=== PATIENT | female | born 1950 | race Caucasian/White ===

== ENCOUNTER 2019-01-22 12:02 | Inpatient (IN) | payer OTHER ==
--- NOTE | 2019-01-22 13:39 | HP ---
CIWA Score - Admission Criteria OASAS Guidelines: Admission for Medically Managed Detox: Requires at least one of the followin. CIWA greater than 12 2. Seizures within the past 24 hours 3. Delirium tremens within the past 24 hours 4. Hallucinations within the past 24 hours 5. Acute intervention needed for co occurring medical disorder 6. Acute intervention needed for co occurring psychiatric disorder 7. Severe withdrawal that cannot be handled at a lower level of care (continued vomiting, continued diarrhea, abnormal vital signs) requiring intravenous medication and/or fluids 8. Admission ROS [facility] Chief Complaint: Pt is here for rehab. Pt was detoxed from alcohol at [facility] for 7 days discharged yesterday. Pt denies of any withdrawals sx at this time. Allergies/Adverse Reactions: Allergies Allergy/AdvReac Type Severity Reaction Status Date / Time No Known Allergies Allergy Verified 01/22/19 12:39 History of Present Illness: pt is a 68yrold female with a history of alcohol dependence seeking rehab after being detox from [facility] yesterday. Pt was d/c yesterday and is feeling comfortable for rehab treatment. Exam Limitations: No Limitations - Ebola screening Have you traveled outside of the country in the last 21 days: No Have you had contact with anyone from an Ebola affected area: No Do you have a fever: No - Review of Systems Constitutional: Changes in sleep EENT: reports: No Symptoms Reported Respiratory: reports: No Symptoms reported Cardiac: reports: No Symptoms Reported GI: reports: Indigestion : reports: No Symptoms Reported Musculoskeletal: reports: No Symptoms Reported Integumentary: reports: Dryness Neuro: reports: No Symptoms reported Endocrine: reports: No Symptoms Reported Hematology: reports: No Symptoms Reported Psychiatric: reports: Judgement Intact, Mood/Affect Appropiate, Orientated x3, Agitated, Anxious Other Systems: Reviewed and Negative Patient History - Patient Medical History Hx Anemia: No Hx Asthma: No Hx Chronic Obstructive Pulmonary Disease (COPD): No Hx Cancer: No Hx Cardiac Disorders: No Hx Congestive Heart Failure: No Hx Hypertension: Yes (non compliant) Hx Hypercholesterolemia: Yes Hx Pacemaker: No HX Cerebrovascular Accident: Yes (mini stoke right sided blood clot 3yrs on plavix) Hx Seizures: No Hx Dementia: No Hx Diabetes: No Hx Gastrointestinal Disorders: No Hx Liver Disease: No Hx Genitourinary Disorders: No Hx Sexually Transmitted Disorders: No Hx Renal Disease (ESRD): No Hx Thyroid Disease: No Hx Human Immunodeficiency Virus (HIV): No (pt denies) Hx Hepatitis C: No (pt denies) Hx Depression: Yes (on medication) Hx Suicide Attempt: No (pt denies) Hx Bipolar Disorder: No Hx Schizophrenia: No - Patient Surgical History Past Surgical History: Yes Hx Abdominal Surgery: Yes (benign tumor right lower abdomen) Hx Section: Yes (3) - PPD History Previous Implant?: Yes Documented Results: Negative w/proof Implanted On Prior R Admission?: No PPD to be Administered?: No - Reproductive History Patient is a Female of Child Bearing Age (11 -55 yrs old): No - Smoking Cessation Smoking history: Never smoked Have you smoked in the past 12 months: No Hx Chewing Tobacco Use: No Initiated information on smoking cessation: No - Substance & Tx. History Hx Alcohol Use: Yes Hx Substance Use: No Substance Use Type: Alcohol Hx Substance Use Treatment: Yes (last [facility] 12/2018) - Substances abused Alcohol Substance route: Oral Frequency: Daily Amount used: 1 liter wine Age of first use: 10 Date of last use: 01/14/19 Family Disease History - Family Disease History Family Disease History: Respiratory: Son (etoh abuse), Other: Son Admission Physical Exam S - Vital Signs Vital Signs: Vital Signs - 24 hr 01/22/19 01/22/19 12:34 13:23 Temperature 98.4 F 98.4 F Pulse Rate 73 73 Respiratory 18 18 Rate Blood Pressure 137/82 137/82 - Physical General Appearance: Yes: Appropriately Dressed, Irritable HEENTM: Yes: Normal ENT Inspection, Normocephalic, Normal Voice Respiratory: Yes: Lungs Clear, Normal Breath Sounds, No Respiratory Distress Neck: Yes: No masses,lesions,Nodules Breast: Yes: Within Normal Limits Cardiology: Yes: Regular Rhythm, Regular Rate, S1, S2 Abdominal: Yes: Normal Bowel Sounds Genitourinary: Yes: Within Normal Limits Back: Yes: Normal Inspection Musculoskeletal: Yes: full range of Motion, Back pain Extremities: Yes: Normal Capillary Refill, Normal Inspection, Non-Tender Neurological: Yes: Fully Oriented, Alert, Normal Response Integumentary: Yes: Normal Color Lymphatic: Yes: Within Normal Limits - Diagnostic (1) Alcohol dependence in early, early partial, sustained full, or sustained partial remission Current Visit: Yes Status: Chronic (2) Hypertension Current Visit: Yes Status: Chronic Qualifiers: Hypertension type: essential hypertension Qualified Code(s): I10 - Essential (primary) hypertension (3) Hypercholesteremia Current Visit: Yes Status: Chronic (4) Depression Current Visit: Yes Status: Acute (5) Old cerebrovascular accident (CVA) without late effect Current Visit: No Status: Chronic Cleared for Admission S - Detox or Rehab [facility] Level of Care: Medically Managed Claeared for Rehab Admission: Yes Breathalyzer - Breathalyzer Breathalyzer: 0 POC Urine test - Test device test lot number: [id number] Expiration date: 06/22/20 - Control test control: Yes - Result Urine Test Results: Negative - NO line present Urine Drug Screen - Test Device Lot number: [id number] Expiration date: 09/21/20 - Control Is test valid?: Yes - Results Drug screen NEGATIVE: No Urine drug screen results: BZO-Benzodiazepines Inpatient Rehab Admission - Rehab Decision to Admit Inpatient rehab admission?: Yes - Initial Determination Are CD services needed?: Yes Free of communicable disease: Yes Not in need of hospitalization: Yes - Rehab Admission Criteria Previous failed treatment: Yes Poor recovery environment: Yes Comorbidities: Yes Lacks judgement: Yes Patient is meeting Inpatient Rehab admission criteria:: Yes
[2019-01-22] MEDS ORDERED: IBUPROFEN 400 MG TABLET (FP) PO PRN (13:56)
[2019-01-22] MEDS ORDERED: MAG HYDROX/AL HYDROX/SIMETH 30 ML UNIT-DOSE CUP PO PRN (13:56)
[2019-01-22] MEDS ORDERED: MAGNESIUM CITRATE 300 ML BOTTLE PO PRN (13:56)
[2019-01-22] MEDS ORDERED: MAGNESIUM HYDROX 2400MG/30ML ORAL SUSPENSION 30 ML CUP PO PRN (13:56)
[2019-01-22] MEDS ORDERED: P-EPHED 60MG/TRIPROLIDI 2.5MG TABLET PO PRN (13:56)
[2019-01-22] MEDS ORDERED: guaiFENesin 200 MG/10 ML 10 ML UNIT-DOSE CUPS PO PRN (13:56)
[2019-01-22] MEDS ORDERED: MENTHOL/PHENOL 1 EACH UD MM PRN (13:56)
[2019-01-22 17:05] LABS: HEMATOCRIT 43.2 % (32.4-45.2); HEMOGLOBIN 14.5 GM/dL (10.7-15.3); MCH 34.7 pg (25.7-33.7); MCHC 33.6 g/dl (32.0-36.0); MEAN CELL VOLUME 103.2 fl (80-96); MEAN PLT VOLUME 8.9 fl (7.5-11.1); PLATELET COUNT 220 K/MM3 (134-434); RBC 4.18 M/mm3 (3.60-5.2); WHITE BLOOD COUNT 5.9 K/mm3 (4.0-10.0)
[2019-01-22 17:41] LABS: ALK PHOS 65 U/L (45-117); ANION GAP 8 MMOL/L (8-16); BLOOD UREA NITROGEN 24 mg/dL (7-18); CALCIUM 8.9 mg/dL (8.5-10.1); CHLORIDE 109 mmol/L (98-107); CO2 24 mmol/L (21-32); CREATININE 0.8 mg/dL (0.55-1.3); GLUCOSE,RANDOM 104 mg/dL (74-106); POTASSIUM 3.8 mmol/L (3.5-5.1); SGOT/AST 22 U/L (15-37); SGPT/ALT 52 U/L (13-61); SODIUM 141 mmol/L (136-145); TOT PROT 6.9 g/dl (6.4-8.2)
[2019-01-22 19:58] LABS: EPI CELLS 2.8 /HPF (0-5); URINE APPEARANCE TURBID; URINE BACTERIA 3.9 /hpf (NEGATIVE); URINE BILIRUBIN 1+ (NEGATIVE); URINE CASTS 17 /hpf (0-8); URINE COLOR DK YELLOW; URINE GLUCOSE (UA) NEGATIVE (NEGATIVE); URINE KETONE TRACE (NEGATIVE); URINE LEUK ESTERASE TRACE (NEGATIVE); URINE NITRITE NEGATIVE (NEGATIVE); URINE PROTEIN NEGATIVE (NEGATIVE); URINE RBC 2 /hpf (0-4); URINE WBC 1 /hpf (0-5)
[2019-01-22] MEDS: ATORVASTATIN CA 40 MG TABLET (FP) PO SCH (21:17)
[2019-01-22] MEDS: THIAMINE HCL 100 MG TABLET (FP) PO SCH (21:17)
[2019-01-22] MEDS: AMMONIUM LACTATE 12% LOTION 225 GM BOTTLE TP SCH (21:18)
[2019-01-22 22:25] LABS: URINE CRYSTALS CALCIUM OXALATES /hpf
[2019-01-23] MEDS: MELATONIN 5 MG TABLETS PO PRN (01:24)
--- NOTE | 2019-01-23 06:51 | CONSULT ---
[facility] Psychiatric Consult - Data Date of interview: 01/23/19 Admission source: [place] [facility] Identifying data: Ms Infante is a 68 years old female, mother of 3 children, retired receiving social security, domiciled living with her seeking inpatient rehab treatment for alcohol Substance Abuse History: Reports history of alcohol use. She started drinking alcohol at age 10, consumes one liter of wine daily. Last drank on 01/14/19. Refer to addiction counselor's summary for further information Medical History: Significant for hypertension, dyslipidemia, history of mild cerebro-vascular accident and removal of benign tumor right lower abdomen. Psychiatric History: Patient reports that her only psychiatric contact was 5-6 years ago when she saw a private psychiatrist in [facility] in [place] for her addiction to alcohol. She said that she was prescribed Acamposate which she took for a while. Reports a few years after that her primary care physician started prescribing her Lexapro for depression. She is currently taking Lexapro 10 mg po daily still prescribed by her PCP. Denies previous hospitalization or suicidal attempt. At preent, reports feeling mildly depressed and sleeping poorly Physical/Sexual Abuse/Trauma History: Denies history of emotional, physical or sexual abuse as well as DV relationship Additional Comment: Denies criminal history Mental Status Exam - Mental Status Exam Alert and Oriented to: Time, Place, Person Cognitive Function: Fair Patient Appearance: Well Groomed Mood: Depressed (mildly) Affect: Appropriate Patient Behavior: Cooperative Speech Pattern: Clear Voice Loudness: Normal Thought Process: Intact Thought Disorder: Not Present Hallucinations: Denies Suicidal Ideation: Denies Homicidal Ideation: Denies Insight/Judgement: Fair Sleep: Poorly Muscle strength/Tone: Normal Gait/Station: Normal Psychiatric Findings - Problem List ([place] 1, 2,3) (1) Depressive disorder Current Visit: Yes Status: Chronic (2) Alcohol-induced mood disorder Current Visit: Yes Status: Acute (3) Alcohol-induced sleep disorder Current Visit: Yes Status: Acute (4) Alcohol dependence Current Visit: Yes Status: Acute (5) Hypercholesteremia Current Visit: Yes Status: Chronic (6) Hypertension Current Visit: Yes Status: Chronic Qualifiers: Hypertension type: essential hypertension Qualified Code(s): I10 - Essential (primary) hypertension (7) Old cerebrovascular accident (CVA) without late effect Current Visit: No Status: Chronic - Initial Treatment Plan Initial Treatment Plan: 1) Continue Lexapro 10 mg po daily. 2) Start Belsomra 10 mg po HS prn for insomnia. 3) Continue inpatient detoxification
[2019-01-23] MEDS ORDERED: PT OWN MED DRAWER 7, Y5N ONE ×3 (08:55→21:51)
[2019-01-23] MEDS: PRENATAL VITAMINS W/ FOLIC ACID TABLET (FP) PO SCH (09:45)
[2019-01-23] MEDS: CARVEDILOL 3.125 MG TABLET (FP) PO SCH (09:45)
[2019-01-23] MEDS: ESCITALOPRAM OXALATE 10 MG TABLET (FP) PO SCH (09:47)
--- NOTE | 2019-01-23 10:08 | EKG ---
Test Reason : Blood Pressure : / mmHG Vent. Rate : 069 BPM Atrial Rate : 069 BPM P-R Int : 164 ms QRS Dur : 086 ms QT Int : 414 ms P-R-T Axes : 027 004 023 degrees QTc Int : 443 ms NORMAL SINUS RHYTHM NORMAL ECG NO PREVIOUS ECGS AVAILABLE Confirmed by FAMILIA CAROLINA, ASIM ([id number]) on 01/23/2019 10:07:55 AM Referred By: Confirmed By:ASIM BARBOSA MD
--- NOTE | 2019-01-23 10:43 | PN ---
S Progress Note Note: Client takes Plavix at home. Added to medication list. Motrin discontinued.
[2019-01-23] MEDS: CLOPIDOGREL BISULFATE 75 MG TABLET (FP) PO SCH (11:08)
[2019-01-23] MEDS: AMMONIUM LACTATE 12% LOTION 225 GM BOTTLE TP SCH ×2 (11:30→21:53)
[2019-01-23] MEDS: ATORVASTATIN CA 40 MG TABLET (FP) PO SCH (21:51)
[2019-01-23] MEDS: THIAMINE HCL 100 MG TABLET (FP) PO SCH (21:52)
[2019-01-23] MEDS: SUVOREXANT 10 MG TABLET PO PRN (21:53)
[2019-01-24] MEDS ORDERED: PT OWN MED DRAWER 7, Y5N ONE ×3 (09:06→21:18)
[2019-01-24] MEDS: PRENATAL VITAMINS W/ FOLIC ACID TABLET (FP) PO SCH (10:12)
[2019-01-24] MEDS: CARVEDILOL 3.125 MG TABLET (FP) PO SCH (10:12)
[2019-01-24] MEDS: ESCITALOPRAM OXALATE 10 MG TABLET (FP) PO SCH (10:12)
[2019-01-24] MEDS: AMMONIUM LACTATE 12% LOTION 225 GM BOTTLE TP SCH ×2 (10:12→21:18)
[2019-01-24] MEDS: CLOPIDOGREL BISULFATE 75 MG TABLET (FP) PO SCH (10:12)
[2019-01-24] MEDS: THIAMINE HCL 100 MG TABLET (FP) PO SCH (21:16)
[2019-01-24] MEDS: SUVOREXANT 10 MG TABLET PO PRN (21:16)
[2019-01-24] MEDS: ATORVASTATIN CA 40 MG TABLET (FP) PO SCH (21:16)
[2019-01-24] MEDS: ARTIFICIAL TEARS (POLYVINYL ALCOHOL) OPTH DROPS OU PRN (21:18)
[2019-01-25] MEDS ORDERED: PT OWN MED DRAWER 7, Y5N ONE ×3 (06:32→22:07)
[2019-01-25] MEDS: ARTIFICIAL TEARS (POLYVINYL ALCOHOL) OPTH DROPS OU PRN (06:32)
[2019-01-25] MEDS: ESCITALOPRAM OXALATE 10 MG TABLET (FP) PO SCH (09:41)
[2019-01-25] MEDS: PRENATAL VITAMINS W/ FOLIC ACID TABLET (FP) PO SCH (09:41)
[2019-01-25] MEDS: AMMONIUM LACTATE 12% LOTION 225 GM BOTTLE TP SCH ×2 (09:41→22:06)
[2019-01-25] MEDS: CLOPIDOGREL BISULFATE 75 MG TABLET (FP) PO SCH (09:41)
[2019-01-25] MEDS: CARVEDILOL 3.125 MG TABLET (FP) PO SCH (09:41)
[2019-01-25] MEDS: SODIUM CHLORIDE NASAL SPRAY 44 ML BOTTLE NS PRN ×2 (09:42→22:07)
[2019-01-25] MEDS: THIAMINE HCL 100 MG TABLET (FP) PO SCH (22:05)
[2019-01-25] MEDS: ATORVASTATIN CA 40 MG TABLET (FP) PO SCH (22:05)
[2019-01-25] MEDS: SUVOREXANT 10 MG TABLET PO PRN (22:06)
[2019-01-26] MEDS: AMMONIUM LACTATE 12% LOTION 225 GM BOTTLE TP SCH ×2 (10:36→21:50)
[2019-01-26] MEDS: CARVEDILOL 3.125 MG TABLET (FP) PO SCH (10:36)
[2019-01-26] MEDS: ESCITALOPRAM OXALATE 10 MG TABLET (FP) PO SCH (10:37)
[2019-01-26] MEDS: PRENATAL VITAMINS W/ FOLIC ACID TABLET (FP) PO SCH (10:37)
[2019-01-26] MEDS: CLOPIDOGREL BISULFATE 75 MG TABLET (FP) PO SCH (10:37)
[2019-01-26] MEDS: ARTIFICIAL TEARS (POLYVINYL ALCOHOL) OPTH DROPS OU PRN ×2 (10:38→21:15)
[2019-01-26] MEDS: SODIUM CHLORIDE NASAL SPRAY 44 ML BOTTLE NS PRN (10:38)
[2019-01-26] MEDS: SUVOREXANT 10 MG TABLET PO PRN (21:14)
[2019-01-26] MEDS: THIAMINE HCL 100 MG TABLET (FP) PO SCH (21:14)
[2019-01-26] MEDS: ATORVASTATIN CA 40 MG TABLET (FP) PO SCH (21:14)
[2019-01-26] MEDS ORDERED: PT OWN MED DRAWER 7, Y5N ONE (21:16)
[2019-01-27] MEDS: CARVEDILOL 3.125 MG TABLET (FP) PO SCH (09:23)
[2019-01-27] MEDS: CLOPIDOGREL BISULFATE 75 MG TABLET (FP) PO SCH (09:24)
[2019-01-27] MEDS: PRENATAL VITAMINS W/ FOLIC ACID TABLET (FP) PO SCH (09:24)
[2019-01-27] MEDS: ARTIFICIAL TEARS (POLYVINYL ALCOHOL) OPTH DROPS OU PRN ×2 (09:24→21:04)
[2019-01-27] MEDS: AMMONIUM LACTATE 12% LOTION 225 GM BOTTLE TP SCH ×2 (09:24→21:04)
[2019-01-27] MEDS: ESCITALOPRAM OXALATE 10 MG TABLET (FP) PO SCH (09:24)
[2019-01-27] MEDS: SODIUM CHLORIDE NASAL SPRAY 44 ML BOTTLE NS PRN ×2 (09:24→21:04)
[2019-01-27] MEDS: MELATONIN 5 MG TABLETS PO PRN (21:03)
[2019-01-27] MEDS: ATORVASTATIN CA 40 MG TABLET (FP) PO SCH (21:03)
[2019-01-27] MEDS: THIAMINE HCL 100 MG TABLET (FP) PO SCH (21:03)
[2019-01-28] MEDS: CLOPIDOGREL BISULFATE 75 MG TABLET (FP) PO SCH (10:22)
[2019-01-28] MEDS: ESCITALOPRAM OXALATE 10 MG TABLET (FP) PO SCH (10:22)
[2019-01-28] MEDS: ARTIFICIAL TEARS (POLYVINYL ALCOHOL) OPTH DROPS OU PRN (10:22)
[2019-01-28] MEDS: PRENATAL VITAMINS W/ FOLIC ACID TABLET (FP) PO SCH (10:22)
[2019-01-28] MEDS: CARVEDILOL 3.125 MG TABLET (FP) PO SCH (10:22)
[2019-01-28] MEDS: SODIUM CHLORIDE NASAL SPRAY 44 ML BOTTLE NS PRN (10:22)
[2019-01-28] MEDS: AMMONIUM LACTATE 12% LOTION 225 GM BOTTLE TP SCH ×2 (10:23→21:25)
[2019-01-28] MEDS: THIAMINE HCL 100 MG TABLET (FP) PO SCH (21:23)
[2019-01-28] MEDS: ATORVASTATIN CA 40 MG TABLET (FP) PO SCH (21:24)
[2019-01-28] MEDS: SODIUM CHLORIDE NASAL SPRAY 44 ML BOTTLE NS SCH (21:24)
[2019-01-28] MEDS: ARTIFICIAL TEARS (POLYVINYL ALCOHOL) OPTH DROPS OU SCH (21:25)
[2019-01-28] MEDS: MELATONIN 5 MG TABLETS PO PRN (21:26)
[2019-01-29] MEDS: ESCITALOPRAM OXALATE 10 MG TABLET (FP) PO SCH (10:04)
[2019-01-29] MEDS: PRENATAL VITAMINS W/ FOLIC ACID TABLET (FP) PO SCH (10:04)
[2019-01-29] MEDS: CLOPIDOGREL BISULFATE 75 MG TABLET (FP) PO SCH (10:04)
[2019-01-29] MEDS: CARVEDILOL 3.125 MG TABLET (FP) PO SCH (10:04)
[2019-01-29] MEDS: AMMONIUM LACTATE 12% LOTION 225 GM BOTTLE TP SCH ×2 (10:04→21:30)
[2019-01-29] MEDS: SODIUM CHLORIDE NASAL SPRAY 44 ML BOTTLE NS SCH ×2 (11:00→21:30)
[2019-01-29] MEDS: ARTIFICIAL TEARS (POLYVINYL ALCOHOL) OPTH DROPS OU SCH ×2 (11:00→21:30)
[2019-01-29] MEDS ORDERED: ARTIFICIAL TEARS (POLYVINYL ALCOHOL) OPTH DROPS OU PRN (14:41)
[2019-01-29] MEDS: THIAMINE HCL 100 MG TABLET (FP) PO SCH (21:30)
[2019-01-29] MEDS: ATORVASTATIN CA 40 MG TABLET (FP) PO SCH (21:30)
[2019-01-29] MEDS: MELATONIN 5 MG TABLETS PO PRN (21:31)
[2019-01-30] MEDS: ACETAMINOPHEN 325 MG TABLET (FP) PO PRN (03:42)
[2019-01-30] MEDS ORDERED: PT OWN MED DRAWER 7, Y5N ONE ×3 (09:27→21:42)
[2019-01-30] MEDS: ARTIFICIAL TEARS (POLYVINYL ALCOHOL) OPTH DROPS OU SCH ×2 (09:56→21:38)
[2019-01-30] MEDS: CARVEDILOL 3.125 MG TABLET (FP) PO SCH (09:57)
[2019-01-30] MEDS: PRENATAL VITAMINS W/ FOLIC ACID TABLET (FP) PO SCH (09:57)
[2019-01-30] MEDS: ESCITALOPRAM OXALATE 10 MG TABLET (FP) PO SCH (09:57)
[2019-01-30] MEDS: CLOPIDOGREL BISULFATE 75 MG TABLET (FP) PO SCH (09:57)
[2019-01-30] MEDS: SODIUM CHLORIDE NASAL SPRAY 44 ML BOTTLE NS SCH ×2 (09:59→21:40)
[2019-01-30] MEDS: AMMONIUM LACTATE 12% LOTION 225 GM BOTTLE TP SCH ×2 (09:59→21:38)
--- NOTE | 2019-01-30 10:10 | PN ---
S Progress Note Note: Client requesting something for her dry eyes. She has artificial tears ordered, but she is not using them. Encouraged to use artificial tears.
--- NOTE | 2019-01-30 10:11 | PN ---
S Progress Note Note: CBC, BMP 01/22/19 13:00 01/22/19 13:00 Reviewed labs with client; encouraged to increase hydration. No significant abnormalities.
[2019-01-30] MEDS: THIAMINE HCL 100 MG TABLET (FP) PO SCH (21:37)
[2019-01-30] MEDS: MELATONIN 5 MG TABLETS PO PRN (21:38)
[2019-01-30] MEDS: ATORVASTATIN CA 40 MG TABLET (FP) PO SCH (21:38)
[2019-01-31] MEDS ORDERED: NAPHAZOLINE/PHENIRAMINE OPHTHALMIC 15 ML BOTTLE OU PRN (09:47)
[2019-01-31] MEDS: PRENATAL VITAMINS W/ FOLIC ACID TABLET (FP) PO SCH (10:08)
[2019-01-31] MEDS: CARVEDILOL 3.125 MG TABLET (FP) PO SCH (10:09)
[2019-01-31] MEDS: ESCITALOPRAM OXALATE 10 MG TABLET (FP) PO SCH (10:09)
[2019-01-31] MEDS: CLOPIDOGREL BISULFATE 75 MG TABLET (FP) PO SCH (10:09)
[2019-01-31] MEDS: SODIUM CHLORIDE NASAL SPRAY 44 ML BOTTLE NS SCH ×2 (10:09→21:42)
[2019-01-31] MEDS: AMMONIUM LACTATE 12% LOTION 225 GM BOTTLE TP SCH ×2 (10:09→21:42)
--- NOTE | 2019-01-31 10:10 | PN ---
S Progress Note Note: Patient continues to complain of itchy eyes,states medication is not working. PE : Sclera clear, no tearing, no redness Dx: Eye itch r/t environmental allergies Plan: Artificial tears discontinued, visine-A ordered, advised client to increase hydration, take actifed.
[2019-01-31] MEDS: NAPHAZOLINE/PHENIRAMINE OPHTHALMIC 15 ML BOTTLE OU PRN (13:57)
[2019-01-31] MEDS ORDERED: PT OWN MED DRAWER 7, Y5N ONE (17:44)
[2019-01-31] MEDS: ATORVASTATIN CA 40 MG TABLET (FP) PO SCH (21:41)
[2019-01-31] MEDS: THIAMINE HCL 100 MG TABLET (FP) PO SCH (21:42)
[2019-01-31] MEDS: MELATONIN 5 MG TABLETS PO PRN (21:43)
[2019-02-01] MEDS ORDERED: PT OWN MED DRAWER 7, Y5N ONE ×4 (06:26→21:14)
[2019-02-01] MEDS: NAPHAZOLINE/PHENIRAMINE OPHTHALMIC 15 ML BOTTLE OU PRN ×3 (06:26→15:30)
[2019-02-01] MEDS: CLOPIDOGREL BISULFATE 75 MG TABLET (FP) PO SCH (09:54)
[2019-02-01] MEDS: CARVEDILOL 3.125 MG TABLET (FP) PO SCH (09:54)
[2019-02-01] MEDS: ESCITALOPRAM OXALATE 10 MG TABLET (FP) PO SCH (09:54)
[2019-02-01] MEDS: PRENATAL VITAMINS W/ FOLIC ACID TABLET (FP) PO SCH (09:54)
[2019-02-01] MEDS: AMMONIUM LACTATE 12% LOTION 225 GM BOTTLE TP SCH ×2 (09:54→21:14)
[2019-02-01] MEDS: SODIUM CHLORIDE NASAL SPRAY 44 ML BOTTLE NS SCH ×2 (09:55→21:13)
[2019-02-01] MEDS: ATORVASTATIN CA 40 MG TABLET (FP) PO SCH (21:11)
[2019-02-01] MEDS: THIAMINE HCL 100 MG TABLET (FP) PO SCH (21:11)
[2019-02-01] MEDS: MELATONIN 5 MG TABLETS PO PRN (21:11)
[2019-02-02] MEDS: NAPHAZOLINE/PHENIRAMINE OPHTHALMIC 15 ML BOTTLE OU PRN ×2 (06:29→12:28)
[2019-02-02] MEDS: PRENATAL VITAMINS W/ FOLIC ACID TABLET (FP) PO SCH (10:11)
[2019-02-02] MEDS: CLOPIDOGREL BISULFATE 75 MG TABLET (FP) PO SCH (10:11)
[2019-02-02] MEDS: SODIUM CHLORIDE NASAL SPRAY 44 ML BOTTLE NS SCH ×2 (10:11→21:32)
[2019-02-02] MEDS: ESCITALOPRAM OXALATE 10 MG TABLET (FP) PO SCH (10:11)
[2019-02-02] MEDS: AMMONIUM LACTATE 12% LOTION 225 GM BOTTLE TP SCH ×2 (10:12→21:32)
[2019-02-02] MEDS: CARVEDILOL 3.125 MG TABLET (FP) PO SCH (10:13)
[2019-02-02] MEDS ORDERED: PT OWN MED DRAWER 7, Y5N ONE (10:14)
[2019-02-02] MEDS: THIAMINE HCL 100 MG TABLET (FP) PO SCH (21:31)
[2019-02-02] MEDS: ATORVASTATIN CA 40 MG TABLET (FP) PO SCH (21:31)
[2019-02-02] MEDS: MELATONIN 5 MG TABLETS PO PRN (21:31)
[2019-02-03] MEDS ORDERED: PT OWN MED DRAWER 7, Y5N ONE ×5 (06:36→17:59)
[2019-02-03] MEDS: NAPHAZOLINE/PHENIRAMINE OPHTHALMIC 15 ML BOTTLE OU PRN ×3 (06:38→21:06)
[2019-02-03] MEDS: CARVEDILOL 3.125 MG TABLET (FP) PO SCH (10:16)
[2019-02-03] MEDS: PRENATAL VITAMINS W/ FOLIC ACID TABLET (FP) PO SCH (10:16)
[2019-02-03] MEDS: CLOPIDOGREL BISULFATE 75 MG TABLET (FP) PO SCH (10:16)
[2019-02-03] MEDS: ESCITALOPRAM OXALATE 10 MG TABLET (FP) PO SCH (10:16)
[2019-02-03] MEDS: SODIUM CHLORIDE NASAL SPRAY 44 ML BOTTLE NS SCH ×2 (10:19→21:07)
[2019-02-03] MEDS: AMMONIUM LACTATE 12% LOTION 225 GM BOTTLE TP SCH ×2 (10:19→21:06)
[2019-02-03] MEDS: ACETAMINOPHEN 325 MG TABLET (FP) PO PRN (19:50)
[2019-02-03] MEDS: MELATONIN 5 MG TABLETS PO PRN (21:05)
[2019-02-03] MEDS: THIAMINE HCL 100 MG TABLET (FP) PO SCH (21:05)
[2019-02-03] MEDS: ATORVASTATIN CA 40 MG TABLET (FP) PO SCH (21:05)
[2019-02-04] MEDS: NAPHAZOLINE/PHENIRAMINE OPHTHALMIC 15 ML BOTTLE OU PRN ×2 (06:27→14:39)
[2019-02-04] MEDS ORDERED: PT OWN MED DRAWER 7, Y5N ONE ×3 (06:27→14:38)
[2019-02-04] MEDS: CLOPIDOGREL BISULFATE 75 MG TABLET (FP) PO SCH (09:59)
[2019-02-04] MEDS: PRENATAL VITAMINS W/ FOLIC ACID TABLET (FP) PO SCH (09:59)
[2019-02-04] MEDS: ESCITALOPRAM OXALATE 10 MG TABLET (FP) PO SCH (09:59)
[2019-02-04] MEDS: CARVEDILOL 3.125 MG TABLET (FP) PO SCH (10:01)
[2019-02-04] MEDS: SODIUM CHLORIDE NASAL SPRAY 44 ML BOTTLE NS SCH ×2 (10:01→21:07)
[2019-02-04] MEDS: AMMONIUM LACTATE 12% LOTION 225 GM BOTTLE TP SCH ×2 (10:01→21:07)
[2019-02-04] MEDS: THIAMINE HCL 100 MG TABLET (FP) PO SCH (21:07)
[2019-02-04] MEDS: ATORVASTATIN CA 40 MG TABLET (FP) PO SCH (21:07)
[2019-02-04] MEDS: MELATONIN 5 MG TABLETS PO PRN (21:08)
[2019-02-05] MEDS: NAPHAZOLINE/PHENIRAMINE OPHTHALMIC 15 ML BOTTLE OU PRN ×2 (06:17→12:29)
[2019-02-05] MEDS: AMMONIUM LACTATE 12% LOTION 225 GM BOTTLE TP SCH ×2 (10:16→21:28)
[2019-02-05] MEDS: CARVEDILOL 3.125 MG TABLET (FP) PO SCH (10:16)
[2019-02-05] MEDS: ESCITALOPRAM OXALATE 10 MG TABLET (FP) PO SCH (10:17)
[2019-02-05] MEDS: CLOPIDOGREL BISULFATE 75 MG TABLET (FP) PO SCH (10:17)
[2019-02-05] MEDS: PRENATAL VITAMINS W/ FOLIC ACID TABLET (FP) PO SCH (10:17)
[2019-02-05] MEDS: SODIUM CHLORIDE NASAL SPRAY 44 ML BOTTLE NS SCH ×2 (10:30→21:28)
[2019-02-05] MEDS: THIAMINE HCL 100 MG TABLET (FP) PO SCH (21:24)
[2019-02-05] MEDS: MELATONIN 5 MG TABLETS PO PRN (21:24)
[2019-02-05] MEDS: ATORVASTATIN CA 40 MG TABLET (FP) PO SCH (21:24)
[2019-02-06] MEDS: NAPHAZOLINE/PHENIRAMINE OPHTHALMIC 15 ML BOTTLE OU PRN (06:28)
[2019-02-06] MEDS ORDERED: PT OWN MED DRAWER 7, Y5N ONE ×2 (08:46→10:19)
[2019-02-06] MEDS: CLOPIDOGREL BISULFATE 75 MG TABLET (FP) PO SCH (10:05)
[2019-02-06] MEDS: CARVEDILOL 3.125 MG TABLET (FP) PO SCH (10:05)
[2019-02-06] MEDS: PRENATAL VITAMINS W/ FOLIC ACID TABLET (FP) PO SCH (10:05)
[2019-02-06] MEDS: ESCITALOPRAM OXALATE 10 MG TABLET (FP) PO SCH (10:05)
[2019-02-06] MEDS: SODIUM CHLORIDE NASAL SPRAY 44 ML BOTTLE NS SCH ×2 (10:05→21:39)
[2019-02-06] MEDS: AMMONIUM LACTATE 12% LOTION 225 GM BOTTLE TP SCH ×2 (10:06→21:39)
[2019-02-06] MEDS: MELATONIN 5 MG TABLETS PO PRN (21:38)
[2019-02-06] MEDS: hydrOXYzine PAMOATE 50 MG CAPSULE (FP) PO PRN (21:38)
[2019-02-06] MEDS: ATORVASTATIN CA 40 MG TABLET (FP) PO SCH (21:38)
[2019-02-06] MEDS: THIAMINE HCL 100 MG TABLET (FP) PO SCH (21:38)
[2019-02-07] MEDS: CARVEDILOL 3.125 MG TABLET (FP) PO SCH (09:52)
[2019-02-07] MEDS: AMMONIUM LACTATE 12% LOTION 225 GM BOTTLE TP SCH ×2 (09:52→21:26)
[2019-02-07] MEDS: ESCITALOPRAM OXALATE 10 MG TABLET (FP) PO SCH (09:53)
[2019-02-07] MEDS: SODIUM CHLORIDE NASAL SPRAY 44 ML BOTTLE NS SCH ×2 (09:53→21:27)
[2019-02-07] MEDS: CLOPIDOGREL BISULFATE 75 MG TABLET (FP) PO SCH (09:53)
[2019-02-07] MEDS: PRENATAL VITAMINS W/ FOLIC ACID TABLET (FP) PO SCH (09:54)
[2019-02-07] MEDS: NAPHAZOLINE/PHENIRAMINE OPHTHALMIC 15 ML BOTTLE OU PRN ×3 (09:54→21:25)
[2019-02-07] MEDS: THIAMINE HCL 100 MG TABLET (FP) PO SCH (21:25)
[2019-02-07] MEDS: ATORVASTATIN CA 40 MG TABLET (FP) PO SCH (21:26)
[2019-02-07] MEDS: MELATONIN 5 MG TABLETS PO PRN (21:26)
[2019-02-08] MEDS: NAPHAZOLINE/PHENIRAMINE OPHTHALMIC 15 ML BOTTLE OU PRN ×3 (06:41→21:47)
[2019-02-08] MEDS ORDERED: PT OWN MED DRAWER 7, Y5N ONE ×2 (08:42→21:48)
[2019-02-08] MEDS: PRENATAL VITAMINS W/ FOLIC ACID TABLET (FP) PO SCH (10:09)
[2019-02-08] MEDS: CARVEDILOL 3.125 MG TABLET (FP) PO SCH (10:09)
[2019-02-08] MEDS: AMMONIUM LACTATE 12% LOTION 225 GM BOTTLE TP SCH ×2 (10:09→23:24)
[2019-02-08] MEDS: ESCITALOPRAM OXALATE 10 MG TABLET (FP) PO SCH (10:10)
[2019-02-08] MEDS: SODIUM CHLORIDE NASAL SPRAY 44 ML BOTTLE NS SCH ×2 (10:10→23:24)
[2019-02-08] MEDS: CLOPIDOGREL BISULFATE 75 MG TABLET (FP) PO SCH (10:10)
[2019-02-08] MEDS: LOPERAMIDE HCL 2 MG CAPSULE PO PRN (14:23)
[2019-02-08] MEDS: ATORVASTATIN CA 40 MG TABLET (FP) PO SCH (21:42)
[2019-02-08] MEDS: hydrOXYzine PAMOATE 50 MG CAPSULE (FP) PO PRN (21:43)
[2019-02-08] MEDS: MELATONIN 5 MG TABLETS PO PRN (21:46)
[2019-02-08] MEDS: THIAMINE HCL 100 MG TABLET (FP) PO SCH (23:25)
[2019-02-09] MEDS: NAPHAZOLINE/PHENIRAMINE OPHTHALMIC 15 ML BOTTLE OU PRN (06:13)
[2019-02-09] MEDS: ESCITALOPRAM OXALATE 10 MG TABLET (FP) PO SCH (09:54)
[2019-02-09] MEDS: CARVEDILOL 3.125 MG TABLET (FP) PO SCH (09:54)
[2019-02-09] MEDS: SODIUM CHLORIDE NASAL SPRAY 44 ML BOTTLE NS SCH ×2 (09:54→21:23)
[2019-02-09] MEDS: CLOPIDOGREL BISULFATE 75 MG TABLET (FP) PO SCH (09:54)
[2019-02-09] MEDS: AMMONIUM LACTATE 12% LOTION 225 GM BOTTLE TP SCH ×2 (09:55→21:23)
[2019-02-09] MEDS: PRENATAL VITAMINS W/ FOLIC ACID TABLET (FP) PO SCH (09:55)
[2019-02-09] MEDS: ATORVASTATIN CA 40 MG TABLET (FP) PO SCH (21:23)
[2019-02-09] MEDS: MELATONIN 5 MG TABLETS PO PRN (21:23)
[2019-02-09] MEDS: THIAMINE HCL 100 MG TABLET (FP) PO SCH (21:23)
[2019-02-10] MEDS: NAPHAZOLINE/PHENIRAMINE OPHTHALMIC 15 ML BOTTLE OU PRN (06:17)
[2019-02-10] MEDS ORDERED: PT OWN MED DRAWER 7, Y5N ONE (08:50)
[2019-02-10] MEDS: PRENATAL VITAMINS W/ FOLIC ACID TABLET (FP) PO SCH (10:17)
[2019-02-10] MEDS: CARVEDILOL 3.125 MG TABLET (FP) PO SCH (10:17)
[2019-02-10] MEDS: ESCITALOPRAM OXALATE 10 MG TABLET (FP) PO SCH (10:17)
[2019-02-10] MEDS: CLOPIDOGREL BISULFATE 75 MG TABLET (FP) PO SCH (10:17)
[2019-02-10] MEDS: SODIUM CHLORIDE NASAL SPRAY 44 ML BOTTLE NS SCH ×2 (10:18→21:37)
[2019-02-10] MEDS: AMMONIUM LACTATE 12% LOTION 225 GM BOTTLE TP SCH ×2 (10:18→21:37)
[2019-02-10] MEDS: ATORVASTATIN CA 40 MG TABLET (FP) PO SCH (21:35)
[2019-02-10] MEDS: THIAMINE HCL 100 MG TABLET (FP) PO SCH (21:35)
[2019-02-10] MEDS: LOPERAMIDE HCL 2 MG CAPSULE PO PRN (21:36)
[2019-02-10] MEDS: MELATONIN 5 MG TABLETS PO PRN (21:37)
[2019-02-11] MEDS: NAPHAZOLINE/PHENIRAMINE OPHTHALMIC 15 ML BOTTLE OU PRN ×2 (06:30→12:52)
[2019-02-11] MEDS: CARVEDILOL 3.125 MG TABLET (FP) PO SCH (10:43)
[2019-02-11] MEDS: PRENATAL VITAMINS W/ FOLIC ACID TABLET (FP) PO SCH (10:43)
[2019-02-11] MEDS: ESCITALOPRAM OXALATE 10 MG TABLET (FP) PO SCH (10:43)
[2019-02-11] MEDS: AMMONIUM LACTATE 12% LOTION 225 GM BOTTLE TP SCH ×2 (10:43→21:35)
[2019-02-11] MEDS: SODIUM CHLORIDE NASAL SPRAY 44 ML BOTTLE NS SCH ×2 (10:43→21:35)
[2019-02-11] MEDS: CLOPIDOGREL BISULFATE 75 MG TABLET (FP) PO SCH (10:43)
[2019-02-11] MEDS ORDERED: PT OWN MED DRAWER 7, Y5N ONE (10:57)
[2019-02-11] MEDS: LIDOCAINE 5% TOPICAL PATCH TP SCH (11:00)
[2019-02-11] MEDS: LOPERAMIDE HCL 2 MG CAPSULE PO PRN (12:50)
[2019-02-11] MEDS: ATORVASTATIN CA 40 MG TABLET (FP) PO SCH (21:34)
[2019-02-11] MEDS: THIAMINE HCL 100 MG TABLET (FP) PO SCH (21:34)
[2019-02-11] MEDS: MELATONIN 5 MG TABLETS PO PRN (21:34)
[2019-02-11] MEDS: LIDOCAINE PATCH REMOVAL MC SCH (21:35)
[2019-02-12] MEDS ORDERED: PT OWN MED DRAWER 7, Y5N ONE ×2 (09:09→09:53)
[2019-02-12] MEDS: AMMONIUM LACTATE 12% LOTION 225 GM BOTTLE TP SCH ×2 (09:50→22:05)
[2019-02-12] MEDS: CLOPIDOGREL BISULFATE 75 MG TABLET (FP) PO SCH (09:51)
[2019-02-12] MEDS: CARVEDILOL 3.125 MG TABLET (FP) PO SCH (09:51)
[2019-02-12] MEDS: PRENATAL VITAMINS W/ FOLIC ACID TABLET (FP) PO SCH (09:51)
[2019-02-12] MEDS: ESCITALOPRAM OXALATE 10 MG TABLET (FP) PO SCH (09:51)
[2019-02-12] MEDS: LIDOCAINE 5% TOPICAL PATCH TP SCH (09:52)
[2019-02-12] MEDS: NAPHAZOLINE/PHENIRAMINE OPHTHALMIC 15 ML BOTTLE OU PRN (09:54)
[2019-02-12] MEDS: SODIUM CHLORIDE NASAL SPRAY 44 ML BOTTLE NS SCH ×2 (10:26→22:05)
[2019-02-12] MEDS: THIAMINE HCL 100 MG TABLET (FP) PO SCH (22:03)
[2019-02-12] MEDS: hydrOXYzine PAMOATE 50 MG CAPSULE (FP) PO PRN (22:03)
[2019-02-12] MEDS: ATORVASTATIN CA 40 MG TABLET (FP) PO SCH (22:03)
[2019-02-12] MEDS: LIDOCAINE PATCH REMOVAL MC SCH (22:04)
[2019-02-12] MEDS: MELATONIN 5 MG TABLETS PO PRN (22:04)
[2019-02-13] MEDS: NAPHAZOLINE/PHENIRAMINE OPHTHALMIC 15 ML BOTTLE OU PRN (06:11)
[2019-02-13] MEDS ORDERED: PT OWN MED DRAWER 7, Y5N ONE (11:00)
[2019-02-13] MEDS: PRENATAL VITAMINS W/ FOLIC ACID TABLET (FP) PO SCH (11:12)
[2019-02-13] MEDS: LIDOCAINE 5% TOPICAL PATCH TP SCH (11:13)
[2019-02-13] MEDS: CLOPIDOGREL BISULFATE 75 MG TABLET (FP) PO SCH (11:13)
[2019-02-13] MEDS: ESCITALOPRAM OXALATE 10 MG TABLET (FP) PO SCH (11:13)
[2019-02-13] MEDS: CARVEDILOL 3.125 MG TABLET (FP) PO SCH (11:13)
[2019-02-13] MEDS: AMMONIUM LACTATE 12% LOTION 225 GM BOTTLE TP SCH ×2 (11:14→21:56)
[2019-02-13] MEDS: SODIUM CHLORIDE NASAL SPRAY 44 ML BOTTLE NS SCH ×2 (11:15→21:57)
[2019-02-13] MEDS: MELATONIN 5 MG TABLETS PO PRN (21:56)
[2019-02-13] MEDS: THIAMINE HCL 100 MG TABLET (FP) PO SCH (21:56)
[2019-02-13] MEDS: LIDOCAINE PATCH REMOVAL MC SCH (21:56)
[2019-02-13] MEDS: ATORVASTATIN CA 40 MG TABLET (FP) PO SCH (21:57)
[2019-02-14] MEDS: NAPHAZOLINE/PHENIRAMINE OPHTHALMIC 15 ML BOTTLE OU PRN ×2 (06:30→21:57)
[2019-02-14] MEDS: CLOPIDOGREL BISULFATE 75 MG TABLET (FP) PO SCH (10:20)
[2019-02-14] MEDS: PRENATAL VITAMINS W/ FOLIC ACID TABLET (FP) PO SCH (10:20)
[2019-02-14] MEDS: LIDOCAINE 5% TOPICAL PATCH TP SCH (10:21)
[2019-02-14] MEDS: CARVEDILOL 3.125 MG TABLET (FP) PO SCH (10:21)
[2019-02-14] MEDS: ESCITALOPRAM OXALATE 10 MG TABLET (FP) PO SCH (10:21)
[2019-02-14] MEDS: SODIUM CHLORIDE NASAL SPRAY 44 ML BOTTLE NS SCH ×2 (10:23→21:54)
[2019-02-14] MEDS: AMMONIUM LACTATE 12% LOTION 225 GM BOTTLE TP SCH ×2 (10:23→21:54)
[2019-02-14] MEDS: LOPERAMIDE HCL 2 MG CAPSULE PO PRN (17:32)
[2019-02-14] MEDS: LIDOCAINE PATCH REMOVAL MC SCH (21:54)
[2019-02-14] MEDS: THIAMINE HCL 100 MG TABLET (FP) PO SCH (21:54)
[2019-02-14] MEDS: MELATONIN 5 MG TABLETS PO PRN (21:55)
[2019-02-14] MEDS: ATORVASTATIN CA 40 MG TABLET (FP) PO SCH (21:55)
[2019-02-15] MEDS: NAPHAZOLINE/PHENIRAMINE OPHTHALMIC 15 ML BOTTLE OU PRN ×2 (06:13→10:58)
[2019-02-15] MEDS ORDERED: PT OWN MED DRAWER 7, Y5N ONE ×2 (06:13→19:47)
[2019-02-15] MEDS: CLOPIDOGREL BISULFATE 75 MG TABLET (FP) PO SCH (10:57)
[2019-02-15] MEDS: ESCITALOPRAM OXALATE 10 MG TABLET (FP) PO SCH (10:57)
[2019-02-15] MEDS: PRENATAL VITAMINS W/ FOLIC ACID TABLET (FP) PO SCH (10:57)
[2019-02-15] MEDS: CARVEDILOL 3.125 MG TABLET (FP) PO SCH (10:58)
[2019-02-15] MEDS: AMMONIUM LACTATE 12% LOTION 225 GM BOTTLE TP SCH ×2 (10:59→21:37)
[2019-02-15] MEDS: LIDOCAINE 5% TOPICAL PATCH TP SCH (10:59)
[2019-02-15] MEDS: SODIUM CHLORIDE NASAL SPRAY 44 ML BOTTLE NS SCH ×2 (11:00→21:37)
[2019-02-15] MEDS: THIAMINE HCL 100 MG TABLET (FP) PO SCH (21:36)
[2019-02-15] MEDS: ATORVASTATIN CA 40 MG TABLET (FP) PO SCH (21:36)
[2019-02-15] MEDS: MELATONIN 5 MG TABLETS PO PRN (21:36)
[2019-02-15] MEDS: LIDOCAINE PATCH REMOVAL MC SCH (21:37)
[2019-02-16] MEDS: LIDOCAINE 5% TOPICAL PATCH TP SCH (10:43)
[2019-02-16] MEDS: SODIUM CHLORIDE NASAL SPRAY 44 ML BOTTLE NS SCH ×2 (10:44→22:17)
[2019-02-16] MEDS: ESCITALOPRAM OXALATE 10 MG TABLET (FP) PO SCH (10:44)
[2019-02-16] MEDS: CARVEDILOL 3.125 MG TABLET (FP) PO SCH (10:44)
[2019-02-16] MEDS: PRENATAL VITAMINS W/ FOLIC ACID TABLET (FP) PO SCH (10:44)
[2019-02-16] MEDS: CLOPIDOGREL BISULFATE 75 MG TABLET (FP) PO SCH (10:44)
[2019-02-16] MEDS: NAPHAZOLINE/PHENIRAMINE OPHTHALMIC 15 ML BOTTLE OU PRN ×2 (10:45→22:19)
[2019-02-16] MEDS: AMMONIUM LACTATE 12% LOTION 225 GM BOTTLE TP SCH ×3 (10:45→22:18)
[2019-02-16] MEDS: ATORVASTATIN CA 40 MG TABLET (FP) PO SCH (22:16)
[2019-02-16] MEDS: MELATONIN 5 MG TABLETS PO PRN (22:16)
[2019-02-16] MEDS: LIDOCAINE PATCH REMOVAL MC SCH (22:16)
[2019-02-16] MEDS: THIAMINE HCL 100 MG TABLET (FP) PO SCH (22:17)
[2019-02-17] MEDS: PRENATAL VITAMINS W/ FOLIC ACID TABLET (FP) PO SCH (10:35)
[2019-02-17] MEDS: LIDOCAINE 5% TOPICAL PATCH TP SCH (10:35)
[2019-02-17] MEDS: CLOPIDOGREL BISULFATE 75 MG TABLET (FP) PO SCH (10:36)
[2019-02-17] MEDS: CARVEDILOL 3.125 MG TABLET (FP) PO SCH (10:36)
[2019-02-17] MEDS: ESCITALOPRAM OXALATE 10 MG TABLET (FP) PO SCH (10:36)
[2019-02-17] MEDS: SODIUM CHLORIDE NASAL SPRAY 44 ML BOTTLE NS SCH ×2 (10:36→21:31)
[2019-02-17] MEDS: NAPHAZOLINE/PHENIRAMINE OPHTHALMIC 15 ML BOTTLE OU PRN (10:36)
[2019-02-17] MEDS: AMMONIUM LACTATE 12% LOTION 225 GM BOTTLE TP SCH ×2 (10:37→21:47)
[2019-02-17] MEDS: THIAMINE HCL 100 MG TABLET (FP) PO SCH (21:31)
[2019-02-17] MEDS: MELATONIN 5 MG TABLETS PO PRN (21:31)
[2019-02-17] MEDS: ATORVASTATIN CA 40 MG TABLET (FP) PO SCH (21:31)
[2019-02-17] MEDS ORDERED: PT OWN MED DRAWER 7, Y5N ONE (21:33)
[2019-02-17] MEDS: LIDOCAINE PATCH REMOVAL MC SCH (21:47)
[2019-02-18] MEDS ORDERED: PT OWN MED DRAWER 7, Y5N ONE (08:58)
[2019-02-18] MEDS: CARVEDILOL 3.125 MG TABLET (FP) PO SCH (10:37)
[2019-02-18] MEDS: LIDOCAINE 5% TOPICAL PATCH TP SCH (10:38)
[2019-02-18] MEDS: AMMONIUM LACTATE 12% LOTION 225 GM BOTTLE TP SCH ×2 (10:38→21:53)
[2019-02-18] MEDS: ESCITALOPRAM OXALATE 10 MG TABLET (FP) PO SCH (10:38)
[2019-02-18] MEDS: PRENATAL VITAMINS W/ FOLIC ACID TABLET (FP) PO SCH (10:39)
[2019-02-18] MEDS: CLOPIDOGREL BISULFATE 75 MG TABLET (FP) PO SCH (10:39)
[2019-02-18] MEDS: NAPHAZOLINE/PHENIRAMINE OPHTHALMIC 15 ML BOTTLE OU PRN (10:39)
[2019-02-18] MEDS: SODIUM CHLORIDE NASAL SPRAY 44 ML BOTTLE NS SCH ×2 (10:39→21:54)
--- NOTE | 2019-02-18 11:56 | PN ---
S Progress Note Note: Patient is scheduled for discharge tomorrow. Script for 30 days supply of Lexapro 10 mg po daily will be electronically transmitted to [facility] at [address] [place], [place] [id number]
--- NOTE | 2019-02-18 12:13 | PN ---
[facility] Progress Note Note: PATIENT SCHEDULED FOR DISCHARGE FROM REHAB 02/19/19. PATIENT STATES SHE ACCOMPLISHED ALL REHAB GOALS, IS MEDICALLY STABLE TODAY AND DENIES SI/HI. PATIENT REPORTS SHE WILL RESUME AFTERCARE WITH HER AA SPONSOR AND ENCOURAGED TO ATTEND GROUP MEETINGS TO PREVENT RELAPSE. PATIENT STATES SHE HAS MEDICATION: LIPITOR, PLAVIX AND COREG AT HOME AND REFUSED REFILL OF MEDICATIONS AT THIS TIME DUE TO INSURANCE CO-PAY. PATIENT STATES SHE HAS ENOUGH MEDICATION X ONE MONTH AND WILL FOLLOW UP WITH PCP NEXT WEEK FOR EVALUATION OF KIDNEYS/CALCIUM OXALATE IN URINE. PATIENT TO APPLY WITH FOR MEDICATION INSURANCE PLAN UPON DISCHARGE. Vital Signs Temperature 97.4 F L 02/18/19 07:14 Pulse Rate 81 02/18/19 09:55 Respiratory Rate 18 02/18/19 07:14 Blood Pressure 126/71 02/18/19 09:55 O2 Sat by Pulse Oximetry (%) Ambulatory Orders Atorvastatin Ca [Lipitor] 40 mg PO HS 01/22/19 Carvedilol [Coreg -] 3.125 mg PO DAILY 01/22/19 Clopidogrel Bisulfate [Clopidogrel] 75 mg PO DAILY 01/22/19 Escitalopram Oxalate [Lexapro -] 10 mg PO DAILY #30 tablet 02/18/19 Laboratory Tests 01/22/19 01/22/19 01/22/19 13:00 13:00 13:00 WBC 5.9 RBC 4.18 Hgb 14.5 Hct 43.2 MCV 103.2 H MCH 34.7 H MCHC 33.6 RDW 16.0 H Plt Count 220 MPV 8.9 Sodium 141 Potassium 3.8 Chloride 109 H Carbon Dioxide 24 Anion Gap 8 BUN 24 H Creatinine 0.8 Creat Clearance w eGFR 70.91 Random Glucose 104 Calcium 8.9 Total Bilirubin 1.0 AST 22 ALT 52 Alkaline Phosphatase 65 Total Protein 6.9 Albumin 4.0 Urine Color Urine Appearance Urine pH Ur Specific [place] Urine Protein Urine Glucose (UA) Urine Ketones Urine Blood Urine Nitrite Urine Bilirubin Urine Urobilinogen Ur Leukocyte Esterase Urine WBC (Auto) Urine RBC (Auto) Urine Casts (Auto) U Pathogenic Cast Auto U Epithel Cells (Auto) Urine Crystals (Auto) Urine Bacteria (Auto) RPR Titer Nonreactive 01/22/19 16:00 WBC RBC Hgb Hct MCV MCH MCHC RDW Plt Count MPV Sodium Potassium Chloride Carbon Dioxide Anion Gap BUN Creatinine Creat Clearance w eGFR Random Glucose Calcium Total Bilirubin AST ALT Alkaline Phosphatase Total Protein Albumin Urine Color Dk yellow Urine Appearance Turbid Urine pH 5.0 Ur Specific [place] 1.029 Urine Protein Negative Urine Glucose (UA) Negative Urine Ketones Trace H Urine Blood Negative Urine Nitrite Negative Urine Bilirubin 1+ H Urine Urobilinogen 1.0 Ur Leukocyte Esterase Trace Urine WBC (Auto) 1 Urine RBC (Auto) 2 Urine Casts (Auto) 17 U Pathogenic Cast Auto None seen U Epithel Cells (Auto) 2.8 Urine Crystals (Auto) Calcium oxalates Urine Bacteria (Auto) 3.9 RPR Titer
[2019-02-18] MEDS: ATORVASTATIN CA 40 MG TABLET (FP) PO SCH (21:52)
[2019-02-18] MEDS: THIAMINE HCL 100 MG TABLET (FP) PO SCH (21:52)
[2019-02-18] MEDS: LIDOCAINE PATCH REMOVAL MC SCH (21:53)
[2019-02-18] MEDS: MELATONIN 5 MG TABLETS PO PRN (21:53)
[2019-02-19 06:43] VITALS: BP 168/80; PULSE 76; TEMP 97.6
--- NOTE | 2019-02-19 09:31 | PN ---
[facility] Progress Note Note: PT COMPLETED REHAB AND WAS DISCHARGED TODAY. PT WILL FOLLOW UP WITH CD AFTERCARE RECOMMENDED. Vital Signs - 8 hr 02/19/19 02/19/19 03:30 06:42 Temperature 97.6 F Pulse Rate 76 Respiratory 18 16 Rate Blood Pressure 168/80 Laboratory Tests 01/22/19 01/22/19 01/22/19 13:00 13:00 13:00 WBC 5.9 RBC 4.18 Hgb 14.5 Hct 43.2 MCV 103.2 H MCH 34.7 H MCHC 33.6 RDW 16.0 H Plt Count 220 MPV 8.9 Sodium 141 Potassium 3.8 Chloride 109 H Carbon Dioxide 24 Anion Gap 8 BUN 24 H Creatinine 0.8 Creat Clearance w eGFR 70.91 Random Glucose 104 Calcium 8.9 Total Bilirubin 1.0 AST 22 ALT 52 Alkaline Phosphatase 65 Total Protein 6.9 Albumin 4.0 Urine Color Urine Appearance Urine pH Ur Specific [place] Urine Protein Urine Glucose (UA) Urine Ketones Urine Blood Urine Nitrite Urine Bilirubin Urine Urobilinogen Ur Leukocyte Esterase Urine WBC (Auto) Urine RBC (Auto) Urine Casts (Auto) U Pathogenic Cast Auto U Epithel Cells (Auto) Urine Crystals (Auto) Urine Bacteria (Auto) RPR Titer Nonreactive 01/22/19 16:00 WBC RBC Hgb Hct MCV MCH MCHC RDW Plt Count MPV Sodium Potassium Chloride Carbon Dioxide Anion Gap BUN Creatinine Creat Clearance w eGFR Random Glucose Calcium Total Bilirubin AST ALT Alkaline Phosphatase Total Protein Albumin Urine Color Dk yellow Urine Appearance Turbid Urine pH 5.0 Ur Specific [place] 1.029 Urine Protein Negative Urine Glucose (UA) Negative Urine Ketones Trace H Urine Blood Negative Urine Nitrite Negative Urine Bilirubin 1+ H Urine Urobilinogen 1.0 Ur Leukocyte Esterase Trace Urine WBC (Auto) 1 Urine RBC (Auto) 2 Urine Casts (Auto) 17 U Pathogenic Cast Auto None seen U Epithel Cells (Auto) 2.8 Urine Crystals (Auto) Calcium oxalates Urine Bacteria (Auto) 3.9 RPR Titer NAD MEDICALLY STABLE PLAN:FOLLOW UP WITH PCP(SEE PREVIOUS NOTE OF 02/18/19) AND CD AFTERCARE RECOMMENDED.
== END 2019-02-19 08:45 | disposition home or self-care (01) | DRG 895 ==
LOC: YASAS 12:02 → Y3E 14:06
PROVIDERS: ADMIT Neuromusculoskeletal Medicine & OMM; ATTEND Neuromusculoskeletal Medicine & OMM
PROC: HZ42ZZZ Group Counseling for Substance Abuse Treatment, Cognitive-Behavioral (ICD-10-PCS; principal; 2019-01-22)
DX: F10.20 Alcohol dependence, uncomplicated (principal); F10.24 Alcohol dependence with alcohol-induced mood disorder; F10.282 Alcohol dependence with alcohol-induced sleep disorder; F32.9 Major depressive disorder, single episode, unspecified; I10 Essential (primary) hypertension; E78.00 Pure hypercholesterolemia, unspecified; H57.89 Other specified disorders of eye and adnexa; J30.89 Other allergic rhinitis; Z86.73 Personal history of transient ischemic attack (TIA), and cerebral infarction without residual deficits; Z79.01 Long term (current) use of anticoagulants
CPT/HCPCS: 36415; 80053; 81003; 85027; 86593; 93005; 93010